=== PATIENT | male | born 1955 | race Caucasian/White ===

== ENCOUNTER 2020-11-04 00:53 | Inpatient (IN) ==
[2020-11-04] MEDS ORDERED: 0.9 % SODIUM CHLORIDE 1,000 ML IV ONE (01:11)
[2020-11-04] MEDS ORDERED: HYDROmorphone 0.5 MG/0.5 ML SYRINGE IV PRN (01:11)
[2020-11-04] MEDS ORDERED: ONDANSETRON 4 MG/2 ML VIAL IV ONE (01:11)
--- NOTE | 2020-11-04 01:11 | Emergency Department Note ---
Abdominal Pain HPI General Chief Complaint: Abdominal Pain Stated Complaint: abd. pain and vomiting Time Seen by Provider: 11/04/20 01:10 Source: patient Mode of arrival: ambulatory Limitations: no limitations History of Present Illness HPI Narrative: Narrative:The patient is a 65-year-old male who presents with abd ominal pain and distention. He reports nausea and vomiting. Denies any history of previous abdominal surgeries denies dysuria or hematuria or flank pain.Patient denies fevers. Takes a daily 81 mg aspirin. Related Data Home Medications Medication Instructions Recorded Confirmed aspirin 81 mg tablet,delayed 81 mg PO DAILY 01/24/20 11/04/20 release carvedilol 6.25 mg tablet 6.25 mg PO BID 01/24/20 11/04/20 furosemide 20 mg tablet 20 mg PO DAILY 01/24/20 11/04/20 glimepiride 2 mg tablet 2 mg PO BID 01/24/20 11/04/20 potassium chloride 20 mEq 20 meq PO DAILY 01/24/20 11/04/20 tablet,extended release empagliflozin [Jardiance] 25 mg PO QAM 11/04/20 11/04/20 metformin 500 mg PO QDAY 11/04/20 11/04/20 Allergies Allergy/AdvReac Type Severity Reaction Status Date / Time semaglutide [From Ozempic] Allergy Intermediate Hives Verified 11/04/20 04:03 Sulfa (Sulfonamide Allergy Intermediate Hives Verified 11/04/20 00:59 Antibiotics) Review of Systems ROS ROS Narrative: Narrative: All systems ED: reviewed and negative except as stated. [facility] Narrative Patient History Narrative: Narrative: Medical/Surgical/Family History All Active Problems (Updated 11/04/20 @ 03:33 by Dario De La Torre DO) SBO (small bowel obstruction) (Acute) Hyponatremia (Acute) Non-insulin dependent diabetes mellitus (Acute) Hyperglycemia (Acute) History of surgery (Acute) Type 2 diabetes mellitus without complications (Acute) Heart disease, unspecified (Acute) Spinal stenosis, lumbar region with neurogenic claudication (Acute) Low back pain (Acute) Chronic pain (Acute) Pneumonia involving right lung (Acute) Abnormal ECG (Acute) Community acquired pneumonia (Acute) Tachycardia (Acute) Cough (Acute) History of back surgery (Acute) Diabetes (Acute) Medical History Chronic pain Heart disease, unspecified Low back pain Spinal stenosis, lumbar region with neurogenic claudication Type 2 diabetes mellitus without complications Surgical History History of surgery TF GUZMAN #1 Bilat L4-5 w/sed 12/12/19 LESI #1 L4-5 w/o sed 04/20/19 Social History Smoking Status: Never smoker Alcohol Intake Frequency: a few times a month Substance Use: does not use Exam Narrative Narrative: Narrative: General Limitations: no limitations General appearance: Present alert Head Head: Present atraumatic and normocephalic Eye Eye: Present normal appearance, PERRL and EOMI ENT ENT: Present normal exam, normal oropharynx and mucous membranes moist Neck Neck: Present normal inspection, full ROM and trachea midline Chest Chest: Present normal inspection and symmetric chest wall rise Respiratory Respiratory: Present normal lung sounds bilaterally Cardiovascular Cardiovascular: Present regular rate and normal rhythm Adbominal Abdominal: Present soft, distention, tenderness, diminished bowel sounds, hypoactive bowel sounds and other (The abdomen soft, obese, distended, diminished bowel sounds, no midline abdominal pulsatile mass, no CVA tenderness diffusely tender, the patient is voluntarily guarding there is rebound tenderness present.) Extremities Extremities: Present normal inspection and full ROM; Absent tenderness Back Back: Present normal inspection and full ROM; Absent tenderness Neurological Neurological: Present alert, oriented X3, CN II-XII intact, normal gait, motor sensory deficit and reflexes normal Psychiatric Psychiatric: Present normal affect Skin Skin: Present warm (WNL); Absent rash Course Course Course Narrative: CT scan shows an impression: Of small bowel obstruction with right lower quadrant transition point. No pneumoperitoneum or ascites. Hepatosplenomegaly. Coronary artery disease. 03:15 am I spoke with the general surgeon, Dr. Condon who is agreed to admit the patient. Basic facilitated admission orders placed. Patient updated. NG tube ordered. NPO. Hold anticoagulation. Patient updated and educated on assessment and plan, is agreeable to NG tube and admission. Vital Signs Vital signs: Vital Signs Temperature 99.0 F 11/04/20 00:54 Pulse Rate 101 H 11/04/20 00:54 Respiratory Rate 18 11/04/20 00:54 Blood Pressure 168/96 11/04/20 00:54 Pulse Oximetry (%) 97 11/04/20 00:54 Temperature 97.2 F 11/04/20 03:55 Pulse Rate 106 H 11/04/20 03:55 Respiratory Rate 16 11/04/20 03:55 Blood Pressure 157/89 11/04/20 03:55 Pulse Oximetry (%) 93 11/04/20 03:55 MDM MDM Narrative Medical decision making narrative: Narrative: Lab Data Result diagrams: 11/04/20 01:24 11/04/20 01:23 Labs: Lab Results 11/04/20 11/04/20 11/04/20 Range/Units 01:23 01:23 01:24 WBC 10.6 (4.5-11.0) K/mcL RBC 5.93 H (4.50-5.90) M/mcL Hgb 16.5 (13.5-16.5) g/dL Hct 50.6 (41.0-55.0) % MCV 85.3 (80.0-100.0) fL MCH 27.8 (26.0-34.0) pg MCHC 32.6 (31.0-36.0) g/dL RDW 18.2 H (11.5-14.5) % Plt Count 133 L (140-440) K/mcL MPV 10.5 H (7.4-10.4) fL Neut % (Auto) 73.3 (38.0-78.0) % Lymph % (Auto) 15.4 (15.0-49.0) % Kay % (Auto) 8.7 (1.0-12.0) % Eos % (Auto) 2.1 (0.0-7.0) % Baso % (Auto) 0.5 (0.0-2.0) % Lymph # (Auto) 1.63 (1.50-4.80) K/mcL Kay # (Auto) 0.92 H (0.10-0.90) K/mcL Eos # (Auto) 0.22 (0.00-0.70) K/mcL Baso # (Auto) 0.05 (0.00-0.20) K/mcL Absolute Neutrophils 7.75 (1.80-8.00) K/mcL PT (11.9-14.5) sec INR (0.9-1.1) VBG Lactic Acid 1.7 (0.5-2.0) mmol/L Sodium 131 L (133-145) mmol/L Potassium 4.2 (3.3-5.1) mmol/L Chloride 92 L (96-108) mmol/L Carbon Dioxide 25 (22-30) mmol/L Anion Gap 14.0 (8.0-16.0) BUN 20 (8-23) mg/dL Creatinine 1.0 (0.7-1.2) mg/dL GFR Calculation 80 Glucose 161 H (70-105) mg/dL Calcium 9.6 (8.6-10.4) mg/dL Total Bilirubin 0.6 (0.1-1.0) mg/dL AST 16 (<40) U/L ALT 17 (<40) U/L Alkaline Phosphatase 92 (39-117) U/L Total Protein 7.6 (5.9-8.4) gm/dL Albumin 4.5 (3.2-5.2) gm/dL Globulin 3.1 (2.2-3.7) gm/dL Albumin/Globulin Ratio 1.5 (1.0-2.3) Lipase 30 (7-60) U/L 11/04/ Range/Units 01:24 WBC (4.5-11.0) K/mcL RBC (4.50-5.90) M/mcL Hgb (13.5-16.5) g/dL Hct (41.0-55.0) % MCV (80.0-100.0) fL MCH (26.0-34.0) pg MCHC (31.0-36.0) g/dL RDW (11.5-14.5) % Plt Count (140-440) K/mcL MPV (7.4-10.4) fL Neut % (Auto) (38.0-78.0) % Lymph % (Auto) (15.0-49.0) % Kay % (Auto) (1.0-12.0) % Eos % (Auto) (0.0-7.0) % Baso % (Auto) (0.0-2.0) % Lymph # (Auto) (1.50-4.80) K/mcL Kay # (Auto) (0.10-0.90) K/mcL Eos # (Auto) (0.00-0.70) K/mcL Baso # (Auto) (0.00-0.20) K/mcL Absolute Neutrophils (1.80-8.00) K/mcL PT 13.1 (11.9-14.5) sec INR 0.9 (0.9-1.1) VBG Lactic Acid (0.5-2.0) mmol/L Sodium (133-145) mmol/L Potassium (3.3-5.1) mmol/L Chloride (96-108) mmol/L Carbon Dioxide (22-30) mmol/L Anion Gap (8.0-16.0) BUN (8-23) mg/dL Creatinine (0.7-1.2) mg/dL GFR Calculation Glucose (70-105) mg/dL Calcium (8.6-10.4) mg/dL Total Bilirubin (0.1-1.0) mg/dL AST (<40) U/L ALT (<40) U/L Alkaline Phosphatase (39-117) U/L Total Protein (5.9-8.4) gm/dL Albumin (3.2-5.2) gm/dL Globulin (2.2-3.7) gm/dL Albumin/Globulin Ratio (1.0-2.3) Lipase (7-60) U/L Discharge Plan Patient/Caregiver Discharge Instructions Pt seen by TOE PULLER/PA only: No Clinical Impression: SBO (small bowel obstruction), Hyponatremia, Non-insulin dependent diabetes mellitus, Hyperglycemia Patient Disposition: Xfer As Inpt ([facility]) Condition: Serious Discharge Date/Time: 11/04/20 03:55 Discharge Location: [facility]
[2020-11-04 02:07] LABS: Basophils # (Auto) 0.05 K/mcL (0.00-0.20); Basophils % (Auto) 0.5 % (0.0-2.0); Eosinophils # (Auto) 0.22 K/mcL (0.00-0.70); Eosinophils % (Auto) 2.1 % (0.0-7.0); Hematocrit 50.6 % (41.0-55.0); Hemoglobin 16.5 g/dL (13.5-16.5); Lymphocytes # (Auto) 1.63 K/mcL (1.50-4.80); Lymphocytes % (Auto) 15.4 % (15.0-49.0); Mean Cell Volume 85.3 fL (80.0-100.0); Mean Corpuscular HGB Conc 32.6 g/dL (31.0-36.0); Mean Platelet Volume 10.5 fL (7.4-10.4); Monocytes # (Auto) 0.92 K/mcL (0.10-0.90); Monocytes % (Auto) 8.7 % (1.0-12.0); Neutrophils % (Auto) 73.3 % (38.0-78.0); Platelet Count 133 K/mcL (140-440); RBC 5.93 M/mcL (4.50-5.90); Red Cell Distribution Width 18.2 % (11.5-14.5); WBC 10.6 K/mcL (4.5-11.0)
[2020-11-04 02:24] LABS: ALT/SGPT 17 U/L (<40); AST/SGOT 16 U/L (<40); Albumin 4.5 gm/dL (3.2-5.2); Albumin/Globulin Ratio 1.5 (1.0-2.3); Alkaline Phosphatase 92 U/L (39-117); Bilirubin,Total 0.6 mg/dL (0.1-1.0); Blood Urea Nitrogen 20 mg/dL (8-23); Calcium 9.6 mg/dL (8.6-10.4); Carbon Dioxide 25 mmol/L (22-30); Chloride 92 mmol/L (96-108); Globulin 3.1 gm/dL (2.2-3.7); Glomerular Filtration Rate 80; Glucose 161 mg/dL (70-105)
[2020-11-04 02:34] LABS: INR 0.9 (0.9-1.1); Prothrombin Time 13.1 sec (11.9-14.5)
[2020-11-04] MEDS ORDERED: ONDANSETRON 4 MG/2 ML VIAL IV PRN (03:17)
[2020-11-04] MEDS ORDERED: morphine 4 MG/ML VIAL IV PRN (03:17)
[2020-11-04] MEDS: LACTATED RINGERS 1,000 ML IV SCH ×2 (04:18→12:20)
[2020-11-04] MEDS: 0.9 % SODIUM CHLORIDE 10 ML SYRINGE IV SCH ×2 (04:37→12:20)
[2020-11-04] MEDS ORDERED: DOCUSATE SODIUM 100 MG CAPSULE PO SCH (09:00)
--- NOTE | 2020-11-04 10:02 | Cat Scan Report ---
History: Abdominal pain with vomiting TECHNIQUE: The patient was imaged following injection of intravenous nonionic contrast scanning during the portal venous phase from above the diaphragm through the symphysis pubis. Sagittal and coronal reformats were created. The radiation exposure was limited using dose reduction technology. FINDINGS: There are several mildly enlarged lymph nodes in the lower constantin bilaterally and in the subcarinal space. The largest is in the subcarinal space and measures 1.2 x 1.9 cm. Minor dependent atelectasis is present in the basilar segments of both lower lobes. No mass is seen in either lung base and there is no pleural effusion. The liver is normal in size. There is mild fatty infiltration. No mass is present. The spleen is borderline enlarged but homogeneous. Gallbladder is contracted but there are no stones within the lumen. Intrahepatic and extrahepatic bile ducts are normal in caliber. The pancreas is normal without evidence of a mass or inflammation. The adrenals are normal and symmetric. A 2.9 x 3.4 cm simple cyst is located medially in the upper pole of left kidney. The kidneys are otherwise normal and there is no mass, stone or hydronephrosis. Both ureters are decompressed. Urinary bladder is unopacified but appears normal. Aorta is normal caliber. There are scattered plaques along the wall. Inferior vena cava is normal. Stomach contains a moderate amount of fluid but the wall is normal thickness. Large amount of fluid throughout the jejunum and proximal ileum with a few air-fluid levels. There is an ill-defined transition point in the lateral right mid abdomen. Adjacent to the abdominal wall on axial image #120 there is a loop of small bowel with thickened yousif. The yousif measure up to 9 mm. There appears to be a transition in caliber of the small intestine at this level. Just proximal to this abnormal segment there is fecal sedation the material within the dilated proximal ileum. The ileum measures 4.9 cm above the transition point. Distal to this the ileum is decompressed and normal. Large intestine is noninflamed but there are multiple diverticula of the descending and sigmoid colon. There is no evidence of large bowel obstruction or acute diverticulitis. The appendix is noninflamed. There are multiple enlarged lymph nodes in the upper abdomen and in the mesentery. In the [place] hepatis there is a 1.6 x 4.1 cm lymph node. Along the lesser curvature of stomach and there is a 1.6 x 2.5 cm node. Inferior to the body of the pancreas and posterior to the splenic vein there is a 2.4 x 3.3 cm lymph node. There is stranding of fat at the root of mesentery. Dense calcifications are present in the vas deferens. Prostate and seminal vesicles appear normal.. The patient had prior fusion in the lumbar spine from L4 to S1. There is chronic grade 1 spondylolisthesis at L4-5. IMPRESSION: Mid small bowel obstruction with the transition point laterally in the right mid abdomen. This could be due to inflammation or tumor involving the wall of the proximal ileum. Lymphadenopathy in the mid and upper abdomen and in the mediastinum as well as both lower constantin. This raises the possibility of a malignancy such as lymphoma. Borderline splenomegaly. Diverticulosis Dr. Orozco was called with the report Interpreted and Authenticated by: Yony Mae 11/04/20
--- NOTE | 2020-11-04 10:06 | XRay Report ---
HISTORY: Small bowel obstruction and nasogastric tube insertion FINDINGS: An NG tube has been inserted with the tip in the fundus of the stomach. The sidehole is at the level of the gastroesophageal junction. The stomach is partially decompressed. The small bowel in the visualized upper half of the abdomen does not appear abnormally dilated. No free intra-abdominal air is present. IMPRESSION: nasogastric tube in the upper stomach Interpreted and Authenticated by: Yony Mae 11/04/20
[2020-11-04] MEDS ORDERED: BENZOCAINE 1 SPRAY BOTTLE TOPICAL ONE (10:18)
--- NOTE | 2020-11-04 10:57 | General Surg History&Physical ---
HPI History of Present Illness Patient information: Note initiated : 11/04/20 at 10:57 am Service Date, if different from initiated Date: [] Patient: Leobardo Barlow a 65 y/o M admitted on 11/04/20 for abd. pain and vomiting. Chief Complaint: [Abdominal pain, nausea, emisis] History of present illness: Mr. Barlow is a 65 year old M who presents with abdominal pain and distention. He reports nausea and vomiting. He reports this started 1 day ago. He has two prior episodes of similar pain and distention, both were resolved with emesis. Denies any history of previous abdominal surgeries denies dysuria or hematuria or flank pain.Patient denies fevers. Takes a daily 81 mg aspirin. He denies fevers, chills, diarrhea. He has had decreased flatus and BM over the last 2 days. Review of Systems Review of systems: all systems are reviewed, negative other than above. PFSH PFSH All Active Problems SBO (small bowel obstruction) (Acute) Hyponatremia (Acute) Non-insulin dependent diabetes mellitus (Acute) Hyperglycemia (Acute) History of surgery (Acute) Type 2 diabetes mellitus without complications (Acute) Heart disease, unspecified (Acute) Spinal stenosis, lumbar region with neurogenic claudication (Acute) Low back pain (Acute) Chronic pain (Acute) Pneumonia involving right lung (Acute) Abnormal ECG (Acute) Community acquired pneumonia (Acute) Tachycardia (Acute) Cough (Acute) History of back surgery (Acute) Diabetes (Acute) Medical History Chronic pain Heart disease, unspecified Low back pain Spinal stenosis, lumbar region with neurogenic claudication Type 2 diabetes mellitus without complications Surgical History History of surgery TF GUZMAN #1 Bilat L4-5 w/sed 12/12/19 LESI #1 L4-5 w/o sed 04/20/19 Social History alcohol intake frequency: a few times a month substance use type: does not use MEDS/ALLERGIES Home Medications and Allergies Home Medications Medication Instructions Recorded Confirmed Type aspirin 81 mg tablet,delayed 81 mg PO DAILY 01/24/20 11/04/20 History release carvedilol 6.25 mg tablet 6.25 mg PO BID 01/24/20 11/04/20 History furosemide 20 mg tablet 20 mg PO DAILY 01/24/20 11/04/20 History glimepiride 2 mg tablet 2 mg PO BID 01/24/20 11/04/20 History potassium chloride 20 mEq 20 meq PO DAILY 01/24/20 11/04/20 History tablet,extended release empagliflozin [Jardiance] 25 mg PO QAM 11/04/20 11/04/20 History metformin 500 mg PO QDAY 11/04/20 11/04/20 History Allergies Allergy/AdvReac Type Severity Reaction Status Date / Time semaglutide [From Ozempic] Allergy Intermediate Hives Verified 11/04/20 04:03 Sulfa (Sulfonamide Allergy Intermediate Hives Verified 11/04/20 00:59 Antibiotics) Physical Examination Vital Signs Vital signs: Temp Pulse Resp BP Pulse Ox 98.6 F 100 H 20 138/94 98 11/04/20 07:37 11/04/20 07:37 11/04/20 07:37 11/04/20 07:37 11/04/20 07:37 General physical appearance General physical exam: well developed, well nourished and no distress Eyes Eye exam: PERRL and normal ocular movement ENT ENT exam: normal pinna, normal nares, normal mucosa, no hearing loss and no congestion Head Head exam IM: Present atraumatic and normocephalic Neck Neck exam: no masses, no bruits, trachea midline, no lymphadenopathy and no venous distension Cardiovascular Cardiovascular exam IM: Present normal rate and rhythm Respiratory Respiratory exam: normal expansion, normal respiratory effort, clear to percussion and clear to auscultation Abdomen Abdomen: Present soft, non tender, bowel sounds and distended; Absent guarding, rigid and rebound Hernia: Present none Genitourinary Genitourinary (Male): Present normal penis with no external lesions Rectum Rectum: Present normal sphincter tone, no hemorrhoids, no tenderness, no masses and no bleeding Integumentary Integumentary: Present no rash, no growths and no abnormal pigmentation Neurologic Neurologic: Present normal coordination and normal sensation Musculoskeletal Musculoskeletal: Present normal gait and normal posture Psychiatric Psychiatric: Present oriented to time, oriented to person, oriented to place, speech is normal and memory intact Results Labs Result diagrams: 11/04/20 01:24 11/04/20 01:23 Labs: Abnormal lab results 11/04/20 11/04/20 Range/Units 01:23 01:24 RBC 5.93 H (4.50-5.90) M/mcL RDW 18.2 H (11.5-14.5) % Plt Count 133 L (140-440) K/mcL MPV 10.5 H (7.4-10.4) fL [place] # (Auto) 0.92 H (0.10-0.90) K/mcL Sodium 131 L (133-145) mmol/L Chloride 92 L (96-108) mmol/L Glucose 161 H (70-105) mg/dL Diabetes panel 11/04/20 Range/Units 01:23 Sodium 131 L (133-145) mmol/L Potassium 4.2 (3.3-5.1) mmol/L Chloride 92 L (96-108) mmol/L Carbon Dioxide 25 (22-30) mmol/L BUN 20 (8-23) mg/dL Creatinine 1.0 (0.7-1.2) mg/dL Glucose 161 H (70-105) mg/dL Calcium 9.6 (8.6-10.4) mg/dL AST 16 (<40) U/L ALT 17 (<40) U/L Alkaline Phosphatase 92 (39-117) U/L Total Protein 7.6 (5.9-8.4) gm/dL Albumin 4.5 (3.2-5.2) gm/dL Calcium panel 11/04/20 Range/Units 01:23 Calcium 9.6 (8.6-10.4) mg/dL Albumin 4.5 (3.2-5.2) gm/dL Pituitary panel 11/04/20 Range/Units 01:23 Sodium 131 L (133-145) mmol/L Potassium 4.2 (3.3-5.1) mmol/L Chloride 92 L (96-108) mmol/L Carbon Dioxide 25 (22-30) mmol/L BUN 20 (8-23) mg/dL Creatinine 1.0 (0.7-1.2) mg/dL Glucose 161 H (70-105) mg/dL Calcium 9.6 (8.6-10.4) mg/dL Adrenal panel 11/04/20 Range/Units 01:23 Sodium 131 L (133-145) mmol/L Potassium 4.2 (3.3-5.1) mmol/L Chloride 92 L (96-108) mmol/L Carbon Dioxide 25 (22-30) mmol/L BUN 20 (8-23) mg/dL Creatinine 1.0 (0.7-1.2) mg/dL Glucose 161 H (70-105) mg/dL Calcium 9.6 (8.6-10.4) mg/dL Total Bilirubin 0.6 (0.1-1.0) mg/dL AST 16 (<40) U/L ALT 17 (<40) U/L Alkaline Phosphatase 92 (39-117) U/L Total Protein 7.6 (5.9-8.4) gm/dL Albumin 4.5 (3.2-5.2) gm/dL All other labs normal. A/P Narrative A/P Narrative: This is a pleasant 65 y/o male who presents with 2 day history consistent with a pSBO, he has no prior history of abdominal surgery, denies any prior history of inflammation in abdomen and is o/w healthy. CT with numerous enlarged lymph nodes and transition point with out obvious mass. Plan: NPO, NGT IV resuscitation. sbft today, may need operative intervention. Time Spent With Patient Time: Total time spent is greater than 50% in coordination of care (as documented) at patient's floor/unit and/or counseling patient:
--- NOTE | 2020-11-04 14:31 | XRay Report ---
HISTORY: Small bowel obstruction FINDINGS: 1.5 L of water mixed 50% with Gastrografin contrast was administered through the indwelling nasogastric tube. Serial overhead images were obtained followed by multiple spot fluoroscopy images. The contrast passed through stomach and small bowel into the colon by two hours. Limited views of the stomach show no abnormality. The duodenum is normal. The jejunum and ileum are normal in caliber and have a normal mucosal pattern. There is no evidence of obstruction. No intrinsic or extrinsic mass is seen. The terminal ileum is normal. On the preceding abdomen CT scan done earlier on the same date there was a partial small bowel obstruction in the region of the proximal ileum adjacent to the abdominal wall, laterally on the right side. Normal small bowel is seen at this site on the current exam.. IMPRESSION: Resolved small bowel obstruction Interpreted and Authenticated by: Yony Mae 11/04/20
--- NOTE | 2020-11-04 18:25 | Discharge Summary ---
Discharge Provider Provider Patient information: Note initiated : 11/04/20 at 6:24 pm Service Date, if different from initiated Date: [] Patient: Leobardo Barlow 65 y/o M admitted on 11/04/20 for abd. pain and vomiting. Chief Complaint: [] Date of admission: 11/04/20 03:55 Discharge date: 11/04/20 Primary care physician: Jeremy Bee Consults: 11/04/20 Consult to Physician [CONS] Stat Comment: Consulting Provider: Moshe Condon Reason For Exam: Physician to Consult COURSE Hospital Course Hospital course: Patient admitted, decompressed. sbft documenting resolution of sbo done, diet advanced without difficulty Discharge diagnosis: resolved sbo Time Spent with Patient Time attestation: Total time spent providing and/or coordinating discharge services: Physical Examination Vital Signs Vital signs: Temp Pulse Resp BP Pulse Ox 98.1 F 126 H 20 120/77 94 11/04/20 16:00 11/04/20 16:00 11/04/20 16:00 11/04/20 16:00 11/04/20 16:00 Discharge Plan Patient/Caregiver Discharge Instructions Activity: increase activity as tolerated Diet: Regular Diet Instructions: Bowel Obstruction (DC) Activity Restrictions/Additional Instructions: Resume home diet as tolerated. Increase activity as tolerated. Follow-up with Jeremy Hay. Contact the office on Sunday 11/05 to schedule Take all medication as directed. Take your prescription, insurance cards, and photo ID to pick up driver your medication. Return to ER for fever, chills, uncontrolled pain, unable to go to the bathroom, nausea and/or vomiting, swelling, redness, signs of infection, shortness of breath, chest pain, return of symptoms, or other acute symptom This discharge packet is provided to you to help keep you informed about your care. We want to ensure you get everything you need when you go home. You will also be receiving a call from us in a few days to follow up with you and see how you are doing since your discharge. This gives us a chance to listen to any concerns you maybe experiencing since you were discharged or any additional needs you may have, as well as providing us feedback on your care experience. We strive to always provide excellent care and thank you for your feedback and for choosing [facility]. Prescriptions: Continued aspirin 81 mg tablet,delayed release (DR/EC) 81 mg PO DAILY RF: 0 carvedilol 6.25 mg tablet 6.25 mg PO BID RF: 0 furosemide 20 mg tablet 20 mg PO DAILY RF: 0 potassium chloride 20 mEq tablet extended release 20 meq PO DAILY RF: 0 glimepiride 2 mg tablet 2 mg PO BID RF: 0 Jardiance 25 mg Tablet 25 mg PO QAM RF: 0 metformin 500 mg Tablet 500 mg PO QDAY RF: 0 Follow Up Plan Follow up with: Jeremy Bee DO [Primary Care Provider] - Moshe Condon MD [Physician] - Patient Disposition: Home, Self-Care Hospital Course: patient admitted, decompressed, sbft documenting resolution of sbo done. Prognosis: Good Overall status at discharge: patient is back to baseline Discharge Orders: Discharge Order (Routine); Ordered 11/04/20 Ordered By: Moshe Condon Pending Pending Pending: Resuscitation Status Full Code Diet Clear Liquid Diet Start Sun Nov 04 164 Lactated Ringer's (Lactated Ringers) 1,000 mls @ 125 mls/hr IV .Q8H [facility] Last Infusion: 11/04/20 18:02 Dose: 0 mls/hr Documented by: Admin: 11/04/20 12:20 Dose: 125 mls/hr Documented by: Infusion: 11/04/20 12:18 Dose: 125 mls/hr Documented by: Admin: 11/04/20 04:18 Dose: 125 mls/hr Documented by: RASHEED Ondansetron HCl (Ondansetron 4 Mg/2 Ml Vial) 4 mg IV Q6HP PRN PRN Reason: Nausea And Vomiting Last Admin: 11/04/20 11:23 Dose: 4 mg Documented by: CASSIE Sodium Chloride (0.9 % Sodium Chloride 10 Ml Syringe) 10 ml IV Q8 RUDDY Last Admin: 11/04/20 12:20 Dose: Not Given Documented by: Admin: 11/04/20 04:37 Dose: Not Given Documented by: RASHEED Shift Summary 11/04/20 05:19 Shift Summary by Angy Gillette Pt was admitted from ER for SBO, NG tube in place and at intermittent medium suction. A & O x4 VSS on RA. IV infusing at 100cc/hr in the right ac. No c/o pain at this time. BS hypoactive. No c/o nausea at this time. Initialized on 11/04/20 05:19 - END OF NOTE
[2020-11-04] MEDS ORDERED: SENNOSIDES 1 TABLET PO SCH (21:00)
== END 2020-11-04 19:02 | disposition home or self-care (01) | DRG 389 ==
LOC: ED 00:53 → MEDSUR 03:55
PROVIDERS: ADMIT Surgery; ATTEND Surgery

== ENCOUNTER 2021-10-10 04:11 | Observation (INO) ==
[2021-10-10] MEDS ORDERED: IOPAMIDOL 100 ML BOTTLE IV ONE (04:12)
[2021-10-10] MEDS ORDERED: ONDANSETRON 4 MG/2 ML VIAL IV ONE (04:26)
[2021-10-10] MEDS ORDERED: LACTATED RINGERS 1,000 ML IV ONE (04:26)
[2021-10-10 04:56] LABS: POC Creatinine 1.1 mg/dL (0.6-1.2)
[2021-10-10 05:28] LABS: Basophils # (Auto) 0.04 K/mcL (0.00-0.30); Basophils % (Auto) 0.5 % (0.0-2.0); Eosinophils # (Auto) 0.35 K/mcL (0.00-0.70); Hematocrit 48.8 % (40.1-51.0); Hemoglobin 15.9 g/dL (13.7-17.5); Lymphocytes # (Auto) 1.75 K/mcL (1.50-4.80); Lymphocytes % (Auto) 19.8 % (15.5-49.0); Mean Cell Volume 78.5 fL (80.0-100.0); Mean Corpuscular HGB Conc 32.6 g/dL (31.0-36.0); Mean Platelet Volume 10.1 fL (7.4-10.4); Monocytes # (Auto) 0.74 K/mcL (0.10-0.90); Monocytes % (Auto) 8.4 % (1.0-12.0); Neutrophils % (Auto) 67.3 % (38.0-78.0); Platelet Count 205 K/mcL (140-440); RBC 6.22 M/mcL (4.63-6.08); Red Cell Distribution Width 18.1 % (11.5-14.5); WBC 8.8 K/mcL (4.5-11.0)
[2021-10-10 05:49] LABS: ALT/SGPT 12 U/L (<40); AST/SGOT 13 U/L (<40); Albumin 4.2 gm/dL (3.2-5.2); Albumin/Globulin Ratio 1.1 (1.0-2.3); Alkaline Phosphatase 96 U/L (39-117); Bilirubin,Total 0.9 mg/dL (0.1-1.0); Blood Urea Nitrogen 24 mg/dL (8-23); Calcium 9.7 mg/dL (8.6-10.4); Carbon Dioxide 24 mmol/L (22-30); Chloride 89 mmol/L (96-108); Globulin 3.7 gm/dL (2.2-3.7); Glomerular Filtration Rate 71; Glucose 164 mg/dL (70-105)
--- NOTE | 2021-10-10 06:43 | Cat Scan Report ---
CLINICAL INFORMATION: Abdominal pain and distention COMPARISON: 03/11/2007 and 11/04/2020 abdomen and pelvic [address]s TECHNIQUE: Following enteric contrast, 80 cc of Isovue-370 were injected intravenously, and 60 seconds later, 0.625 mm helical slices were obtained from the mid heart through the subtrochanteric regions. Following reconstruction, 2.5 mm sagittal, coronal and axial reformatted images were processed and reviewed at bone, lung and soft tissue windows. Five minutes later, 0.625 mm helical slices were obtained from the mid heart through the kidneys and viewed at soft tissue windows.The exam was performed using radiation dose optimization techniques including, but not limited to, automated exposure control, adjustment of the mA and/or kV according to patient size and use of iterative reconstruction technique. FINDINGS: The lung bases minimal patchy groundglass airspace disease which is unchanged. It likely represents atelectasis and fibrosis at no feli infiltrates.. No effusions. The visualized heart is grossly normal. Abdominal images show minimal fatty change within the liver, but no focal hepatic lesions. 4-5 small (less than 5 mm) high density foci within the gallbladder fundal lumen are new and likely represent sludge or, less likely, noncalcified stones. The gallbladder otherwise normal without evidence of wall thickening or pericholecystic fluid. Intrahepatic and common bile ducts are unremarkable: CBD is 6 mm. The pancreas, right kidney, adrenal glands and aorta, including aortic branches are normal in size, configuration and attenuation without focal lesion. 2.8 cm simple cyst posterior mid left kidney is stable. Since the previous CT, nearly one year prior, there has been a dramatic increase in the size and number of multiple enlarged retroperitoneal and mesenteric lymph nodes widely disseminated throughout the abdomen and pelvis. The largest retroperitoneal conglomerative adenopathy spans 4.6 cm in the pericaval region. In addition, the spleen has increased dramatically-now 21 cm in vertical dimension. Findings are highly suspicious for non-Hodgkin's lymphoma. Pelvic images show prostate is mildly enlarged, but unchanged (transverse dimension of 5.2 cm). Urinary bladder is normal. The stomach, duodenum, jejunum and proximal ileum are moderately dilated due to adhesions or stricture in the mid ileum. The transition point is identified in the right lower quadrant-best seen on sagittal image 35. The distal ileum is markedly decompressed and there is reduction in the amount of colonic stool. Colon shows sigmoid diverticulosis-as previously seen. A small amount of free fluid is noted deep true pelvis. There is also mild mesenteric edema. Bone windows show L4-5 and L5-S1 anterior/posterior fusion and laminectomy. At L4-5 there is moderate IV foraminal narrowing with grade 1 spondylolisthesis. No other osseous lesions. IMPRESSION: High-grade mid ileal obstruction due to adhesions or stricture. A small amount of free fluid and mesenteric edema suggest third spacing. No evidence of free air. Massive adenopathy throughout the abdomen and pelvis with marked splenomegaly. This is increased dramatically since the comparison CT nearly one year prior. Findings are highly suspicious for non-Hodgkin's lymphoma. If tissue diagnosis is desired, suggest CT-guided biopsy of retroperitoneal adenopathy when patient returns to clinical baseline. Four five small high density within the gallbladder representing sludge versus noncalcified stones. Interpreted and Authenticated by: Graeme Sage 10/10/21
--- NOTE | 2021-10-10 07:17 | Emergency Department Note ---
Abdominal Pain [facility] General Chief Complaint: Abdominal Pain Stated Complaint: Bilateral Upper Quadrant Pain Time Seen by Provider: 10/10/21 04:14 Source: patient Mode of arrival: ambulatory Limitations: no limitations History of Present Illness HPI Narrative: Narrative: 66-year-old male history of non-Hodgkin's lymphoma recently started chemotherapy on September 26 presenting to the ED with 2 days of progressive gener alized abdominal pain, distention nausea vomiting unable to tolerate p.o. also no bowel movement or flatus for 2 days. He says it feels just like when he had a bowel obstruction last year. He has never had any abdominal surgeries. The previous obstruction resolved with typical conservative management. No other complaints at this time. Related Data Home Medications Medication Instructions Recorded Confirmed aspirin 81 mg tablet,delayed 81 mg PO DAILY 01/24/20 11/09/20 release carvedilol 6.25 mg tablet 6.25 mg PO BID 01/24/20 11/09/20 furosemide 20 mg tablet 20 mg PO DAILY 01/24/20 11/09/20 glimepiride 2 mg tablet 2 mg PO BID 01/24/20 11/09/20 potassium chloride 20 mEq 20 meq PO DAILY 01/24/20 11/09/20 tablet,extended release empagliflozin 25 mg tablet 25 mg PO QAM 11/04/20 11/09/20 (Jardiance) metformin 500 mg tablet 500 mg PO QDAY 11/04/20 11/09/20 Allergies Allergy/AdvReac Type Severity Reaction Status Date / Time semaglutide [From Ozempic] Allergy Intermediate Hives Verified 11/09/20 10:59 Sulfa (Sulfonamide Allergy Intermediate Hives Verified 11/09/20 10:59 Antibiotics) Review of Systems ROS ROS Narrative: Narrative:At least 10 systems reviewed and otherwise acutely negative except as in the HPI PFSH Narrative Patient History Narrative: Narrative: Medical/Surgical/Family History All Active Problems SBO (small bowel obstruction) (Acute) Hyponatremia (Acute) Non-insulin dependent diabetes mellitus (Acute) Hyperglycemia (Acute) SBO (small bowel obstruction) (Acute) History of surgery (Acute) Type 2 diabetes mellitus without complications (Acute) Heart disease, unspecified (Acute) Spinal stenosis, lumbar region with neurogenic claudication (Acute) Low back pain (Acute) Chronic pain (Acute) Pneumonia involving right lung (Acute) Abnormal ECG (Acute) Community acquired pneumonia (Acute) Tachycardia (Acute) Cough (Acute) History of back surgery (Acute) Diabetes (Acute) Medical History Chronic pain Heart disease, unspecified Low back pain Spinal stenosis, lumbar region with neurogenic claudication Type 2 diabetes mellitus without complications Surgical History History of surgery TF GUZMAN #1 Bilat L4-5 w/sed 12/12/19 LESI #1 L4-5 w/o sed 04/20/19 Social History Smoking Status: Never smoker Alcohol Intake Frequency: a few times a month Substance Use: does not use Exam Narrative Narrative: Narrative: Constitutional: normally developed, no acute distress . Head: Normocephalic, atraumatic, Eyes: No Icterus, ENT: Moist mucus membranes, Neck: Supple, Cardiac: Normal heart sounds Pulmonary: Normal respiratory effort. Breath sounds clear, no wheeze, rhonchi, rales, Gastrointestinal: Abdomen soft, distended tender throughout no rebound no guardi ng nonrigid Musculoskeletal: No gross deformities, well perfused Skin: warm, dry Neuro: Alert General Limitations: no limitations Course Vital Signs Vital signs: Vital Signs Temperature 36.4 C 10/10/21 04:11 Pulse Rate 128 H 10/10/21 04:11 Respiratory Rate 20 10/10/21 04:11 Blood Pressure 132/82 10/10/21 04:11 Pulse Oximetry (%) 97 10/10/21 04:11 Temperature 36.4 C 10/10/21 04:11 Pulse Rate 112 H 10/10/21 07:01 Respiratory Rate 20 10/10/21 04:11 Blood Pressure 118/77 10/10/21 07:01 Pulse Oximetry (%) 93 10/10/21 07:01 [facility] Narrative Medical decision making narrative: Narrative: Patient presents with abdominal pain distention now unable tolerating p.o. and no longer having bowel movements most suspicious for obstruction. No history of surgery but has had partial SBO in the past with conservative resolution. Also recently begun treatment for NHL. Given some IV fluids, antiemetic, declined analgesics CBC unremarkable, electrolytes bit elevated anion gap but normal bicarb LFTs lipase within normal bilirubin normal CT with a high-grade ileal obstruction likely due to adhesions or stricture per radiology no evidence of free air Does have massive adenopathy with known non-Hodgkin's lymphoma progressed from previous CT Did consult with Dr. Condon surgery who evaluated the patient. did request if hospitalist would be willing to admit primary given his history of non-Hodgkin's lymphoma Have spoken with Dr. Goins, accepts admission. Of note patient currently refusing NGT, Dr. Condon aware. Lab Data Result diagrams: 10/10/21 04:52 10/10/21 04:51 Labs: Lab Results 10/10/21 10/10/21 Range/Units 04:51 04:52 WBC 8.8 (4.5-11.0) K/mcL RBC 6.22 H (4.63-6.08) M/mcL Hgb 15.9 (13.7-17.5) g/dL Hct 48.8 (40.1-51.0) % MCV 78.5 L (80.0-100.0) fL MCH 25.6 L (26.0-34.0) pg MCHC 32.6 (31.0-36.0) g/dL RDW 18.1 H (11.5-14.5) % Plt Count 205 (140-440) K/mcL MPV 10.1 (7.4-10.4) fL Neut % (Auto) 67.3 (38.0-78.0) % Lymph % (Auto) 19.8 (15.5-49.0) % [place] % (Auto) 8.4 (1.0-12.0) % Eos % (Auto) 4.0 (0.0-7.0) % Baso % (Auto) 0.5 (0.0-2.0) % Lymph # (Auto) 1.75 (1.50-4.80) K/mcL [place] # (Auto) 0.74 (0.10-0.90) K/mcL Eos # (Auto) 0.35 (0.00-0.70) K/mcL Baso # (Auto) 0.04 (0.00-0.30) K/mcL Absolute Neutrophils 5.95 (1.80-8.00) K/mcL Sodium 135 (133-145) mmol/L Potassium 4.2 (3.3-5.1) mmol/L Chloride 89 L (96-108) mmol/L Carbon Dioxide 24 (22-30) mmol/L Anion Gap 22.0 H (8.0-16.0) BUN 24 H (8-23) mg/dL Creatinine 1.1 (0.7-1.2) mg/dL POC Creatinine 1.1 (0.6-1.2) mg/dL GFR Calculation 71 Glucose 164 H (70-105) mg/dL Calcium 9.7 (8.6-10.4) mg/dL Total Bilirubin 0.9 (0.1-1.0) mg/dL AST 13 (<40) U/L ALT 12 (<40) U/L Alkaline Phosphatase 96 (39-117) U/L Total Protein 7.9 (5.9-8.4) gm/dL Albumin 4.2 (3.2-5.2) gm/dL Globulin 3.7 (2.2-3.7) gm/dL Albumin/Globulin Ratio 1.1 (1.0-2.3) Lipase 22 (7-60) U/L Discharge Plan Patient/Caregiver Discharge Instructions Pt seen by ENTRY LEVEL BUYER/PA only: No Clinical Impression: SBO (small bowel obstruction) Patient Disposition: Xfer As Inpt ([facility]) Condition: Good Follow up with: Jeremy Bee DO [Primary Care Provider] - Prescriptions: No Action aspirin 81 mg tablet,delayed release (DR/EC) 81 mg PO DAILY 0RF Rx Instructions: unknown PO unknown; carvedilol 6.25 mg tablet 6.25 mg PO BID 0RF Rx Instructions: unknown PO unknown; furosemide 20 mg tablet 20 mg PO DAILY 0RF Rx Instructions: unknown PO unknown; potassium chloride 20 mEq tablet extended release 20 meq PO DAILY 0RF Rx Instructions: unknown PO unknown; glimepiride 2 mg tablet 2 mg PO BID 0RF Jardiance 25 mg Tablet 25 mg PO QAM 0RF metformin 500 mg Tablet 500 mg PO QDAY 0RF
[2021-10-10] MEDS ORDERED: LACTATED RINGERS 1,000 ML IV SCH (07:30)
[2021-10-10] MEDS ORDERED: NALOXONE HCL 0.4 MG/ML VIAL IV PRN (07:30)
[2021-10-10] MEDS ORDERED: morphine 2 MG/ML VIAL IV PRN (07:30)
[2021-10-10] MEDS ORDERED: ONDANSETRON 4 MG/2 ML VIAL IV PRN (07:30)
--- NOTE | 2021-10-10 10:08 | Internal Med History&Physical ---
HPI History of Present Illness Patient information: Note initiated : 10/10/21 at 9:52 am Service Date, if different from initiated Date: [] Patient: Leobardo Barlow a 66 y/o M admitted on 10/10/21 for Bilateral Upper Quadrant Pain. Chief Complaint: [] Chief complaint: Generalized abdominal pain nausea vomiting History of present illness: Mr. Barlow is a 66 year old M with recently diagnosed non-Hodgkin's (September 28, 2021), type 2 diabetes mellitus, history of small bowel obstruction in October 2020, presents with 2-day history of generalized abdominal pain, nausea vomiting and unable to tolerate oral intake. He has not passed gas or had a bowel movement in 48 hours. He reports this feels very similar to his prior episode of small bowel obstruction (October 2020). That resolved with Gastrografin SBFT. ER physician discussed with Dr. Condon, the general surgeon and Dr. Condon would like for us to admit Ms. Barlow. Last chemo with rituximab on September 26. Constitutional Constitutional: Absent anorexia, chills, fatigue, fever(s), headache(s), lethargy, malaise or night sweats Cardiovascular Cardiovascular: Absent chest pain, chest pain at rest, diaphoresis, irregular heart rhythm or lightheadedness Respiratory Respiratory: Absent hemoptysis, wheezing or excessive phlegm production Gastrointestinal Gastrointestinal: Present abdominal pain, change in bowel habits, constipation, cramping, nausea and vomiting Neurological Neurological: Absent abnormal gait, abnormal speech, confusion, dizziness or headache(s) PFSH PFSH All Active Problems SBO (small bowel obstruction) (Acute) Hyponatremia (Acute) Non-insulin dependent diabetes mellitus (Acute) Hyperglycemia (Acute) SBO (small bowel obstruction) (Acute) History of surgery (Acute) Type 2 diabetes mellitus without complications (Acute) Heart disease, unspecified (Acute) Spinal stenosis, lumbar region with neurogenic claudication (Acute) Low back pain (Acute) Chronic pain (Acute) Pneumonia involving right lung (Acute) Abnormal ECG (Acute) Community acquired pneumonia (Acute) Tachycardia (Acute) Cough (Acute) History of back surgery (Acute) Diabetes (Acute) Medical History Chronic pain Heart disease, unspecified Low back pain Spinal stenosis, lumbar region with neurogenic claudication Type 2 diabetes mellitus without complications Surgical History History of surgery TF GUZMAN #1 Bilat L4-5 w/sed 12/12/19 LESI #1 L4-5 w/o sed 04/20/19 Social History alcohol intake frequency: a few times a month substance use type: does not use MEDS/ALLERGIES Home Medications and Allergies Home Medications Medication Instructions Recorded Confirmed Type aspirin 81 mg tablet,delayed 81 mg PO DAILY 01/24/20 10/10/21 History release carvedilol 6.25 mg tablet 6.25 mg PO BID 01/24/20 10/10/21 History glimepiride 2 mg tablet 2 mg PO BID 01/24/20 10/10/21 History empagliflozin 25 mg tablet 25 mg PO QAM 11/04/20 10/10/21 History (Jardiance) allopurinol 300 mg tablet 1 tab PO QDAY 10/10/21 10/10/21 History Allergies Allergy/AdvReac Type Severity Reaction Status Date / Time semaglutide [From Ozempic] Allergy Intermediate Hives Verified 11/09/20 10:59 Sulfa (Sulfonamide Allergy Intermediate Hives Verified 11/09/20 10:59 Antibiotics) EXAM Constitutional Vitals: Temp Pulse Resp BP Pulse Ox 97.6 F 111 H 20 117/73 93 10/10/21 09:20 10/10/21 09:20 10/10/21 09:20 10/10/21 09:20 10/10/21 09:20 General appearance: average body habitus, cooperative and no acute distress Head Head exam: Present atraumatic and normocephalic Eye Eye exam: Present normal appearance ENT ENT exam: Present mucous membranes moist Respiratory Respiratory exam: Present normal respiratory exam and CTAB; Absent accessory muscle use, rales, respiratory distress, stridor or wheezes Cardiovascular Cardiovascular exam: Present normal rate and rhythm and RRR; Absent bradycardia, diastolic murmur, gallop, irregular rhythm or rubs GI/Abdominal GI/Abdominal exam: Present diminished bowel sounds, distended and hypoactive bowel sounds Expanded Lower Extremity Exam Hip exam: Present normal inspection; Absent swelling Back Exam Back exam: Present normal inspection; Absent CVA tenderness (L), CVA tenderness (R), paraspinal tenderness or vertebral tenderness Neurological Exam Neurological exam: Present alert and oriented X3; Absent abnormal gait or motor sensory deficit DATA Data Completed and Pending Labs: Labs from last 24 hours 10/10/21 10/10/21 04:52 04:51 WBC 8.8 RBC 6.22 H Hgb 15.9 Hct 48.8 MCV 78.5 L MCH 25.6 L MCHC 32.6 RDW 18.1 H Plt Count 205 MPV 10.1 Neut % (Auto) 67.3 Lymph % (Auto) 19.8 [place] % (Auto) 8.4 Eos % (Auto) 4.0 Baso % (Auto) 0.5 Lymph # (Auto) 1.75 [place] # (Auto) 0.74 Eos # (Auto) 0.35 Baso # (Auto) 0.04 Absolute Neutrophils 5.95 Sodium 135 Potassium 4.2 Chloride 89 L Carbon Dioxide 24 Anion Gap 22.0 H BUN 24 H Creatinine 1.1 POC Creatinine 1.1 GFR Calculation 71 Glucose 164 H Calcium 9.7 Total Bilirubin 0.9 AST 13 ALT 12 Alkaline Phosphatase 96 Total Protein 7.9 Albumin 4.2 Globulin 3.7 Albumin/Globulin Ratio 1.1 Lipase 22 A/P Narrative A/P Narrative: Mr. Barlow is a 66 year old M with recently diagnosed non-Hodgkin's (September 28, 2021), coronary artery disease status post stent , type 2 diabetes mellitus, history of small bowel obstruction in October 2020, presents with 2-day history of generalized abdominal pain, nausea vomiting and unable to tolerate oral intake. #Small bowel obstruction CT abdomen shows high-grade mid ileal obstruction due to adhesions/stricture. Suspect this could be from his non-Hodgkin's lymphoma. Dr. Condon, ED physician and myself advised him to have a nasogastric tube for decompression. Patient refused at this time since he felt his symptoms were not very severe. N.p.o. Await input by Dr. Condon at this time. From the hospitalist team, we will manage volume resuscitation (saline at 100 cc an hour) correction of metabolic abnormalities (Daily BMP) bowel rest (stopped all p.o. medications, switched aspirin to chewable) Patient reports acid reflux symptoms, ordered pantoprazole IV. A.m. abdominal x-ray ordered for follow-up Defer decision regarding Gastrografin to the surgeon #Non-Hodgkin's lymphoma-has established care with the oncologist and has been started on treatment with rituximab. Has Tramaine. #Type 2 diabetes mellitus.-Accu-Cheks twice daily. DVT prophylaxis-Lovenox Time Spent With Patient Time: Total time spent is greater than 50% in coordination of care (as documented) at patient's floor/unit and/or counseling patient: Total time spent with greater than 50% in coordination of care (as documented) at patient's floor/unit and/or counseling patient:: 50 - 70 minutes
[2021-10-10] MEDS ORDERED: 0.9 % SODIUM CHLORIDE 1,000 ML BAG IV SCH (10:15)
[2021-10-10] MEDS: PANTOPRAZOLE 40 MG VIAL IV SCH (11:05)
[2021-10-10] MEDS: ASPIRIN 81 MG TAB.CHEW CHEWED SCH (11:05)
[2021-10-10] MEDS: 0.9 % SODIUM CHLORIDE 1,000 ML IV SCH ×2 (11:05→20:57)
[2021-10-10] MEDS: 0.9 % SODIUM CHLORIDE 10 ML SYRINGE IV SCH ×2 (13:17→20:46)
[2021-10-10] MEDS ORDERED: DEXTROSE 50% 50 ML VIAL IV PRN (13:19)
[2021-10-10] MEDS ORDERED: DEXTROSE 31 GM ORAL.SUSP PO PRN (13:19)
--- NOTE | 2021-10-10 13:21 | Internal Med Progress Note ---
SUBJECTIVE Subjective Patient information: Note initiated : 10/10/21 at 1:15 pm Service Date, if different from initiated Date: [] Patient: Leobardo Barlow a 66 y/o M admitted on 10/10/21 for Bilateral Upper Quadrant Pain. Chief Complaint: [] Interval history: Chief complaint: Generalized abdominal pain nausea vomiting History of present illness: Mr. Barlow is a 66 year old M with recently diagnosed non-Hodgkin's (September 28, 2021), type 2 diabetes mellitus, history of small bowel obstruction in October 2020, presents with 2-day history of generalized abdominal pain, nausea vomiting and unable to tolerate oral intake. He has not passed gas or had a bowel movement in 48 hours. He reports this feels very similar to his prior episode of small bowel obstruction (October 2020). That resolved with Gastrografin SBFT. ER physician discussed with Dr. Condon, the general surgeon and Dr. Condon would like for us to admit Ms. Barlow. Last chemo with rituximab on September 26. 10/11 Constitutional Vitals: Vital Signs Temp Pulse Resp BP Pulse Ox 97.6 F 105 H 20 117/78 90 10/10/21 12:00 10/10/21 12:00 10/10/21 12:00 10/10/21 12:00 10/10/21 12:00 Period Temp Pulse Resp BP Sys/Saldivar Pulse Ox Last 24 Hr 97.4 F-97.6 F 100-132 20-20 110-137/64-88 89-98 Intake and Output 10/09/21 10/10/21 10/10/21 21:59 05:59 13:59 Intake Total 1000 Balance 1000 Weight 97.522 kg 97.522 kg Patient Weight 10/11/21 05:59 Weight 97.522 kg Intake & Output: Intake & Output 10/09/21 10/10/21 10/10/21 21:59 05:59 13:59 Intake Total 1000 Balance 1000 Weight 97.522 kg 97.522 kg Intake: IV 1000 Lactated Ringers 1,000 ml @ 1000 Wide Open IV BOLUS ONE Rx#: [id number] Exam: General: Alert, Awake, No acute Distress Eyes/N/T: EOMI, Head/Neck: neck supple, CV: RRR, No murmurs, Pulm: Clear b/l, no wheezing/rhonchi/rales Abd: diminished BS, distended Ext: no clubbing/cyanosis/edema Neuro: Alert, no focal deficits, moves all extremities, Skin: warm/dry OBJ DATA Labs CBC & Chem 7: 10/10/21 04:52 10/10/21 04:51 Labs: Abnormal Lab Results 10/10/21 10/10/21 04:52 04:51 RBC 6.22 H MCV 78.5 L MCH 25.6 L RDW 18.1 H Chloride 89 L Anion Gap 22.0 H BUN 24 H Glucose 164 H Meds: Medications Aspirin (Aspirin 81 Mg Tab.Chew) 81 mg CHEWED DAILY [facility] Last Admin: 10/10/21 11:05 Dose: 81 mg Documented by: Diagnostic Test (Pha) (Accu-Chek 1 Each Strip) 1 each FS Q6 [facility] Enoxaparin Sodium (Enoxaparin 40 Mg/0.4 Ml Syringe) 40 mg SQ DAILY [facility] Sodium Chloride (Sodium Chloride 0.9%) 1,000 mls @ 100 mls/hr IV Q10H [facility] Last Admin: 10/10/21 11:05 Dose: 100 mls/hr Documented by: Morphine Sulfate (Morphine 2 Mg/Ml Vial) 2 mg IV Q1HP PRN; Protocol PRN Reason: Per Pain Protocol Naloxone HCl (Naloxone Hcl 0.4 Mg/Ml Vial) 0.1 mg IV Q2MIN PRN PRN Reason: Opiate Reversal Ondansetron HCl (Ondansetron 4 Mg/2 Ml Vial) 4 mg IV Q4HP PRN; Protocol PRN Reason: Nausea And Vomiting Pantoprazole Sodium (Pantoprazole 40 Mg Vial) 40 mg IV QAMAC [facility] Last Admin: 10/10/21 11:05 Dose: 40 mg Documented by: Sodium Chloride (0.9 % Sodium Chloride 10 Ml Syringe) 10 ml IV Q8 [facility] A/P Narrative A/P Narrative: A/P: #SBO: -CT abdomen shows high-grade mid ileal obstruction due to adhesions/stricture -Suspect this could be from his non-Hodgkin's lymphoma. -Dr. Condon following, defer further recs/imaging/diet to surgery #Pyrosis: ordered IV protonix #Non-Hodgkin's lymphoma: has established care with the oncologist and has been started on treatment with rituximab #DM 2: SSI #ppx: Lovenox / ppi Time Spent With Patient Time: Total time spent is greater than 50% in coordination of care (as documented) at patient's floor/unit and/or counseling patient: QUALITY VTE Deep Vein Thrombosis/Pulmonary Embolism Present on Admission: No
[2021-10-10] MEDS: INSULIN LISPRO 1 UNIT/0.01 ML UNIT SQ SCH ×2 (17:46→20:58)
--- NOTE | 2021-10-10 18:57 | General Surgery Consult Note ---
HPI Data of Consult Patient: known to practice within the last 3 years Consult date: 10/10/21 Primary Care Provider: Jeremy Bee Consult Narrative Patient Information: Note initiated : 10/10/21 at 6:54 pm Service Date, if different from initiated Date: [] Patient: Leobardo Barlow 66 y/o M admitted on 10/10/21 for Bilateral Upper Quadrant Pain. Chief Complaint: abd distention, nausea, emisis This is a pleasant 66 y/o male known to me from prior sbo who presents with s/s c/w SBO. He has been recently dx with lymphoma, and has started treatment. Over the last few days he has had mild nausea, emesis and presented to the ER with CT c/w sbo. cc:: CC: Pedro Goins MD PFS PFSH All Active Problems SBO (small bowel obstruction) (Acute) Hyponatremia (Acute) Non-insulin dependent diabetes mellitus (Acute) Hyperglycemia (Acute) SBO (small bowel obstruction) (Acute) History of surgery (Acute) Type 2 diabetes mellitus without complications (Acute) Heart disease, unspecified (Acute) Spinal stenosis, lumbar region with neurogenic claudication (Acute) Low back pain (Acute) Chronic pain (Acute) Pneumonia involving right lung (Acute) Abnormal ECG (Acute) Community acquired pneumonia (Acute) Tachycardia (Acute) Cough (Acute) History of back surgery (Acute) Diabetes (Acute) Medical History Chronic pain Heart disease, unspecified Low back pain Spinal stenosis, lumbar region with neurogenic claudication Type 2 diabetes mellitus without complications Surgical History History of surgery TF GUZMAN #1 Bilat L4-5 w/sed 12/12/19 LESI #1 L4-5 w/o sed 04/20/19 Social History alcohol intake frequency: a few times a month substance use type: does not use MEDS/ALLERGIES Home Medications and Allergies Home Medications Medication Instructions Recorded Confirmed Type aspirin 81 mg tablet,delayed 81 mg PO DAILY 01/24/20 10/10/21 History release carvedilol 6.25 mg tablet 6.25 mg PO BID 01/24/20 10/10/21 History glimepiride 2 mg tablet 2 mg PO BID 01/24/20 10/10/21 History empagliflozin 25 mg tablet 25 mg PO QAM 11/04/20 10/10/21 History (Jardiance) allopurinol 300 mg tablet 1 tab PO QDAY 10/10/21 10/10/21 History Allergies Allergy/AdvReac Type Severity Reaction Status Date / Time semaglutide [From Ozempic] Allergy Intermediate Hives Verified 11/09/20 10:59 Sulfa (Sulfonamide Allergy Intermediate Hives Verified 11/09/20 10:59 Antibiotics) Physical Examination Vital Signs Vital signs: Temp Pulse Resp BP Pulse Ox 97.8 F 98 H 16 117/71 96 10/10/21 18:49 10/10/21 18:49 10/10/21 18:49 10/10/21 18:49 10/10/21 18:49 General physical appearance General physical exam: well developed, well nourished and no distress Eyes Eye exam: PERRL and normal ocular movement ENT ENT exam: normal pinna, normal nares, normal mucosa, no hearing loss and no congestion Head Head exam IM: Present atraumatic and normocephalic Neck Neck exam: no masses, no bruits, trachea midline, no lymphadenopathy and no venous distension Cardiovascular Cardiovascular exam IM: Present normal rate and rhythm Respiratory Respiratory exam: normal expansion, normal respiratory effort, clear to percussion and clear to auscultation Abdomen Abdomen: Present soft, non tender, bowel sounds and distended; Absent masses, guarding or rigid Hernia: Present none Genitourinary Genitourinary (Male): Present normal penis with no external lesions Rectum Rectum: Present normal sphincter tone, no hemorrhoids, no tenderness, no masses and no bleeding Integumentary Integumentary: Present no rash, no growths and no abnormal pigmentation Neurologic Neurologic: Present normal coordination and normal sensation Musculoskeletal Musculoskeletal: Present normal gait and normal posture Psychiatric Psychiatric: Present oriented to time, oriented to person, oriented to place, speech is normal and memory intact Results Labs Result diagrams: 10/10/21 04:52 10/10/21 04:51 Labs: Abnormal lab results 10/10/21 10/10/21 Range/Units 04:51 04:52 RBC 6.22 H (4.63-6.08) M/mcL MCV 78.5 L (80.0-100.0) fL MCH 25.6 L (26.0-34.0) pg RDW 18.1 H (11.5-14.5) % Chloride 89 L (96-108) mmol/L Anion Gap 22.0 H (8.0-16.0) BUN 24 H (8-23) mg/dL Glucose 164 H (70-105) mg/dL Diabetes panel 10/10/21 Range/Units 04:51 Sodium 135 (133-145) mmol/L Potassium 4.2 (3.3-5.1) mmol/L Chloride 89 L (96-108) mmol/L Carbon Dioxide 24 (22-30) mmol/L BUN 24 H (8-23) mg/dL Creatinine 1.1 (0.7-1.2) mg/dL Glucose 164 H (70-105) mg/dL Calcium 9.7 (8.6-10.4) mg/dL AST 13 (<40) U/L ALT 12 (<40) U/L Alkaline Phosphatase 96 (39-117) U/L Total Protein 7.9 (5.9-8.4) gm/dL Albumin 4.2 (3.2-5.2) gm/dL Calcium panel 10/10/21 Range/Units 04:51 Calcium 9.7 (8.6-10.4) mg/dL Albumin 4.2 (3.2-5.2) gm/dL Pituitary panel 10/10/21 Range/Units 04:51 Sodium 135 (133-145) mmol/L Potassium 4.2 (3.3-5.1) mmol/L Chloride 89 L (96-108) mmol/L Carbon Dioxide 24 (22-30) mmol/L BUN 24 H (8-23) mg/dL Creatinine 1.1 (0.7-1.2) mg/dL Glucose 164 H (70-105) mg/dL Calcium 9.7 (8.6-10.4) mg/dL Adrenal panel 10/10/21 Range/Units 04:51 Sodium 135 (133-145) mmol/L Potassium 4.2 (3.3-5.1) mmol/L Chloride 89 L (96-108) mmol/L Carbon Dioxide 24 (22-30) mmol/L BUN 24 H (8-23) mg/dL Creatinine 1.1 (0.7-1.2) mg/dL Glucose 164 H (70-105) mg/dL Calcium 9.7 (8.6-10.4) mg/dL Total Bilirubin 0.9 (0.1-1.0) mg/dL AST 13 (<40) U/L ALT 12 (<40) U/L Alkaline Phosphatase 96 (39-117) U/L Total Protein 7.9 (5.9-8.4) gm/dL Albumin 4.2 (3.2-5.2) gm/dL All other labs normal. A/P Assessment and plan (1) SBO (small bowel obstruction): Assessment and plan: s/s c/w sbo, no current emesis Plan: admit NPO sbft tomorrow if no return of bowel function. Status: Acute Time Spent With Patient Time: Total time spent is greater than 50% in coordination of care (as documented) at patient's floor/unit and/or counseling patient:
[2021-10-11] MEDS: 0.9 % SODIUM CHLORIDE 10 ML SYRINGE IV SCH (06:22)
[2021-10-11] MEDS: 0.9 % SODIUM CHLORIDE 1,000 ML IV SCH (06:22)
--- NOTE | 2021-10-11 07:03 | XRay Report ---
CLINICAL INFORMATION: High-grade mid ileal obstruction due to adhesions or strictures. Follow-up COMPARISON: Abdomen and pelvic CT 10/10/2021 FINDINGS: There are multiple loops of small bowel in the central abdomen which are mildly dilated. The distal small bowel and colon is relatively decompressed. No free air or soft tissue mass. Moderate splenomegaly again noted. Liver is slightly decreased in size. IMPRESSION: Improving distal small bowel obstruction. Consider repeat small bowel follow through to confirm or refute Interpreted and Authenticated by: Graeme Sage 10/11/21
--- NOTE | 2021-10-11 07:25 | Internal Med Progress Note ---
SUBJECTIVE Subjective Patient information: Note initiated : 10/11/21 at 7:22 am Service Date, if different from initiated Date: [] Patient: Leobardo Barlow a 66 y/o M admitted on 10/10/21 for Bilateral Upper Quadrant Pain. Chief Complaint: [] Interval history: Chief complaint: Generalized abdominal pain nausea vomiting History of present illness: Mr. Barlow is a 66 year old M with recently diagnosed non-Hodgkin's (September 28, 2021), type 2 diabetes mellitus, history of small bowel obstruction in October 2020, presents with 2-day history of generalized abdominal pain, nausea vomiting and unable to tolerate oral intake. He has not passed gas or had a bowel movement in 48 hours. He reports this feels very similar to his prior episode of small bowel obstruction (October 2020). That resolved with Gastrografin SBFT. ER physician discussed with Dr. Condon, the general surgeon and Dr. Condon would like for us to admit Ms. Barlow. Last chemo with rituximab on September 26. 10/11 Constitutional Vitals: Vital Signs Temp Pulse Resp BP Pulse Ox 97.9 F 82 16 105/64 99 10/11/21 06:52 10/11/21 06:52 10/11/21 06:52 10/11/21 06:52 10/11/21 06:52 Period Temp Pulse Resp BP Sys/Saldivar Pulse Ox Last 24 Hr 97.4 F-98.4 F 82-111 16-20 105-130/64-85 90-99 Intake and Output 10/10/21 10/11/21 10/11/21 21:59 05:59 13:59 Intake Total 1287 900 Output Total 350 Balance 937 900 Weight 95.708 kg Intake & Output: Intake & Output 10/10/21 10/11/21 10/11/21 21:59 05:59 13:59 Intake Total 1287 900 Output Total 350 Balance 937 900 Weight 95.708 kg Intake: IV 987 Sodium Chloride 0.9% 1,000 ml @ 987 100 mls/hr IV Q10H [facility]UDYD Rx#: [id number] Oral 300 900 Output: Void Amount 350 Other: Urine Appearance Clear Clear Urine Color Dark Yellow Dark Yellow Stool Size Large Stool Color Brown Stool Consistency Liquid # Voids 1 # Bowel Movements 1 # Emeses 0 Exam: General: Alert, Awake, No acute Distress Eyes/N/T: EOMI, Head/Neck: neck supple, CV: RRR, No murmurs, Pulm: Clear b/l, no wheezing/rhonchi/rales Abd: diminished BS, distended Ext: no clubbing/cyanosis/edema Neuro: Alert, no focal deficits, moves all extremities, Skin: warm/dry OBJ DATA Labs CBC & Chem 7: 10/10/21 04:52 10/11/21 07:42 Labs: Abnormal Lab Results 10/10/21 10/10/21 04:52 04:51 RBC 6.22 H MCV 78.5 L MCH 25.6 L RDW 18.1 H Chloride 89 L Anion Gap 22.0 H BUN 24 H Glucose 164 H Meds: Medications Aspirin (Aspirin 81 Mg Tab.Chew) 81 mg CHEWED DAILY [facility] Last Admin: 10/10/21 11:05 Dose: 81 mg Documented by: Dextrose (Dextrose 50% 50 Ml Vial) 0 ml IV UD PRN PRN Reason: Per Sliding Scale Diagnostic Test (Pha) (Accu-Chek 1 Each Strip) 1 each FS Q6 [facility] Last Admin: 10/11/21 06:21 Dose: Not Given Documented by: Diagnostic Test (Pha) (Accu-Chek 1 Each Strip) 1 each FS ACHS [facility]UD[facility] Last Admin: 10/10/21 20:46 Dose: 1 each Documented by: Enoxaparin Sodium (Enoxaparin 40 Mg/0.4 Ml Syringe) 40 mg SQ DAILY [facility] Glucose (Dextrose 31 Gm Oral.Susp) 15 gm PO PRN PRN PRN Reason: Hypoglycemia Sodium Chloride (Sodium Chloride 0.9%) 1,000 mls @ 100 mls/hr IV Q10H [facility] Last Admin: 10/11/21 06:22 Dose: Not Given Documented by: Insulin Human Lispro (Insulin Lispro 1 Unit/0.01 Ml Unit) 0 unit SQ ACHS RUDDY; Protocol Last Admin: 10/10/21 20:58 Dose: Not Given Documented by: Morphine Sulfate (Morphine 2 Mg/Ml Vial) 2 mg IV Q1HP PRN; Protocol PRN Reason: Per Pain Protocol Naloxone HCl (Naloxone Hcl 0.4 Mg/Ml Vial) 0.1 mg IV Q2MIN PRN PRN Reason: Opiate Reversal Ondansetron HCl (Ondansetron 4 Mg/2 Ml Vial) 4 mg IV Q4HP PRN; Protocol PRN Reason: Nausea And Vomiting Pantoprazole Sodium (Pantoprazole 40 Mg Vial) 40 mg IV QAMAC [facility] Last Admin: 10/10/21 11:05 Dose: 40 mg Documented by: Sodium Chloride (0.9 % Sodium Chloride 10 Ml Syringe) 10 ml IV Q8 [facility] Last Admin: 10/11/21 06:22 Dose: Not Given Documented by: A/P Narrative A/P Narrative: A/P: #SBO: resolving -CT abdomen shows high-grade mid ileal obstruction due to adhesions/stricture -Suspect this could be from his non-Hodgkin's lymphoma. -Dr. Condon following, defer further recs/imaging to surgery -on clear diet #Pyrosis: ordered IV protonix #Non-Hodgkin's lymphoma: has established care with the oncologist and has been started on treatment with rituximab #DM 2: SSI #ppx: Lovenox / ppi Time Spent With Patient Time: Total time spent is greater than 50% in coordination of care (as documented) at patient's floor/unit and/or counseling patient: QUALITY VTE Deep Vein Thrombosis/Pulmonary Embolism Present on Admission: No
[2021-10-11] MEDS: INSULIN LISPRO 1 UNIT/0.01 ML UNIT SQ SCH (07:57)
[2021-10-11] MEDS: PANTOPRAZOLE 40 MG VIAL IV SCH (07:57)
[2021-10-11 08:48] LABS: ALT/SGPT 9 U/L (<40); AST/SGOT 9 U/L (<40); Albumin 3.4 gm/dL (3.2-5.2); Albumin/Globulin Ratio 1.2 (1.0-2.3); Alkaline Phosphatase 72 U/L (39-117); Bilirubin,Direct 0.2 mg/dL (<0.3); Bilirubin,Total 0.7 mg/dL (0.1-1.0); Blood Urea Nitrogen 21 mg/dL (8-23); Calcium 8.3 mg/dL (8.6-10.4); Carbon Dioxide 28 mmol/L (22-30); Chloride 95 mmol/L (96-108); Globulin 2.9 gm/dL (2.2-3.7); Glomerular Filtration Rate 79; Glucose 155 mg/dL (70-105); Lactate Dehydrogenase 193 U/L (135-225); Phosphorous 2.6 mg/dL (2.5-4.5); Triglycerides 170 mg/dL (<150); Uric Acid 6.5 mg/dL (2.5-8.0)
[2021-10-11] MEDS ORDERED: ENOXAPARIN 40 MG/0.4 ML SYRINGE SQ SCH (09:00)
--- NOTE | 2021-10-11 09:09 | Discharge Summary ---
Discharge Provider Provider Patient information: Note initiated : 10/11/21 at 9:09 am Service Date, if different from initiated Date: [] Patient: Leobardo Barlow 66 y/o M admitted on 10/10/21 for Bilateral Upper Quadrant Pain. Chief Complaint: [] Date of admission: 10/10/21 09:18 Discharge date: 10/11/21 Primary care physician: Jeremy Bee Consults: 10/10/21 Consult to Physician [CONS] Stat Comment: Consulting Provider: Pedro Goins Reason For Exam: Physician to Consult Consult to Physician [CONS] Stat Comment: Consulting Provider: Moshe Condon Reason For Exam: Physician to Consult Discharge Meds Discharge Medications Home Medications aspirin 81 mg tablet,delayed release 81 mg PO DAILY 01/24/20 [History Confirmed 10/10/21 Last Taken 10/03/21] carvedilol 6.25 mg tablet 6.25 mg PO BID 01/24/20 [History Confirmed 10/10/21 Last Taken 10/09/21 21:00] glimepiride 2 mg tablet 2 mg PO BID 01/24/20 [History Confirmed 10/10/21 Last Taken 10/09/21 21:00] empagliflozin 25 mg tablet (Jardiance) 25 mg PO QAM 11/04/20 [History Confirmed 10/10/21 Last Taken 10/09/21 07:00] allopurinol 300 mg tablet 1 tab PO QDAY 10/10/21 [History Confirmed 10/10/21 Last Taken 10/09/21 07:00] famotidine 20 mg tablet (Pepcid) 20 mg PO QDAY #30 tab 10/11/21 [Rx Last Taken Unknown] COURSE Hospital Course Hospital course[facility] Complaint: [] Interval history: Chief complaint: Generalized abdominal pain nausea vomiting History of present illness: Mr. Barlow is a 66 year old M with recently diagnosed non-Hodgkin's (September 28, 2021), type 2 diabetes mellitus, history of small bowel obstruction in October 2020, presents with 2-day history of generalized abdominal pain, nausea vomiting and unable to tolerate oral intake. He has not passed gas or had a bowel movement in 48 hours. He reports this feels very similar to his prior episode of small bowel obstruction (October 2020). That resolved with Gastrografin SBFT. ER physician discussed with Dr. Condon, the general surgeon and Dr. Condon would like for us to admit Ms. Barlow. Last chemo with rituximab on September 26. 10/11 Patient had multiple bowel movements last night and feeling much better. Desire to go home. A/P: #SBO: -Suspect this could be from his non-Hodgkin's lymphoma. #Pyrosis: protonix #Non-Hodgkin's lymphoma: has established care with the oncologist and has been started on treatment with rituximab #DM 2: SSI #ppx: Lovenox / ppi Discharge diagnosis: Small bowel obstruction pyrosis Secondary discharge diagnosis: Non-Hodgkin's informant diabetes Time Spent with Patient Time attestation: Total time spent providing and/or coordinating discharge services: Time spent: Greater than 30 minutes EXAM Constitutional Vitals: Temp Pulse Resp BP Pulse Ox 97.9 F 82 16 105/64 99 10/11/21 06:52 10/11/21 06:52 10/11/21 06:52 10/11/21 06:52 10/11/21 06:52 Discharge Data Data Completed and Pending Labs on day of discharge: Labs from last 24 hours 10/11/21 07:42 Sodium 131 L Potassium 4.3 Chloride 95 L Carbon Dioxide 28 Anion Gap 8.0 BUN 21 Creatinine 1.0 GFR Calculation 79 Glucose 155 H Uric Acid 6.5 Calcium 8.3 L Phosphorus 2.6 Magnesium 2.4 Total Bilirubin 0.7 Direct Bilirubin 0.2 GGT 18 AST 9 ALT 9 Alkaline Phosphatase 72 Lactate Dehydrogenase 193 Total Protein 6.3 Albumin 3.4 Globulin 2.9 Albumin/Globulin Ratio 1.2 Triglycerides 170 H Discharge Plan Patient/Caregiver Discharge Instructions Activity: increase activity as tolerated Diet: Regular Diet Prescriptions: New famotidine [Pepcid] 20 mg tablet 20 mg PO QDAY Qty: 30 0RF Continued aspirin 81 mg tablet,delayed release (DR/EC) 81 mg PO DAILY 0RF Rx Instructions: unknown PO unknown; carvedilol 6.25 mg tablet 6.25 mg PO BID 0RF Rx Instructions: unknown PO unknown; glimepiride 2 mg tablet 2 mg PO BID 0RF Jardiance 25 mg Tablet 25 mg PO QAM 0RF allopurinol 300 mg tablet 1 tab PO QDAY 0RF Follow Up Plan Follow up with: Jeremy Bee DO [Primary Care Provider] - Patient Disposition: Home, Self-Care Prognosis: Good Overall status at discharge: patient is not back to baseline Discharge Orders: Discharge Order (Routine); Ordered 10/11/21 Ordered By: Bello KENT VTE Deep Vein Thrombosis/Pulmonary Embolism Present on Admission: No
--- NOTE | 2021-10-11 09:35 | General Surgery Progress Note ---
SUBJECTIVE Subjective Patient information: Note initiated : 10/11/21 at 9:34 am Service Date, if different from initiated Date: [] Patient: Leobardo Barlow 66 y/o M admitted on 10/10/21 for Bilateral Upper Quadrant Pain. Chief Complaint: [] Interval history: Patient doing very well overnight, had return of bowel function, no further abdominal distention, had multiple bowel movements. Patient no longer has any nausea vomiting fevers or chills. Constitutional Vitals: Vital Signs Temp Pulse Resp BP Pulse Ox 97.9 F 82 16 105/64 99 10/11/21 06:52 10/11/21 06:52 10/11/21 06:52 10/11/21 06:52 10/11/21 06:52 Period Temp Pulse Resp BP Sys/Saldivar Pulse Ox Last 24 Hr 97.4 F-98.4 F 82-108 16-20 105-130/64-78 90-99 Intake and Output 10/10/21 10/11/21 10/11/21 21:59 05:59 13:59 Intake Total 2998 321 6671 Output Total 350 Balance 159 767 5972 Weight 211 lb Intake & Output: Intake & Output 10/10/21 10/11/21 10/11/21 21:59 05:59 13:59 Intake Total 2920 788 7656 Output Total 350 Balance 607 835 2523 Weight 211 lb Intake: IV 987 1000 Sodium Chloride 0.9% 1,000 ml @ 987 1000 100 mls/hr IV Q10H [facility]UDDY Rx#: [id number] Oral 300 900 Output: Void Amount 350 Other: Urine Appearance Clear Clear Urine Color Dark Yellow Dark Yellow Stool Size Large Stool Color Brown Stool Consistency Liquid # Voids 1 # Bowel Movements 1 # Emeses 0 General appearance: cooperative and no acute distress GI/Abdominal GI/Abdominal exam: Present soft; Absent distended or tenderness A/P Assessment and plan (1) SBO (small bowel obstruction): Status: Acute Plan Resolved partial small bowel obstruction. Advance diet as tolerated, clear for discharge from surgical standpoint. Follow-up with oncology. Time Spent With Patient Time: Total time spent is greater than 50% in coordination of care (as documented) at patient's floor/unit and/or counseling patient:
[2021-10-11] MEDS: ASPIRIN 81 MG TAB.CHEW CHEWED SCH (10:10)
== END 2021-10-11 10:40 | disposition home or self-care (01) ==
LOC: ED 04:11 → INTOOBSV 09:18 → MEDSUR 09:18
PROVIDERS: ADMIT Internal Medicine Medical Oncology; ATTEND Internal Medicine